=== PATIENT | male | born 1950 | race American Indian/Alaskan Native ===

== ENCOUNTER 2020-01-14 17:04 | Observation (INO) | payer MEDICARE ==
[2020-01-14] MEDS ORDERED: GABAPENTIN 300 MG CAP PO ONE (21:32)
[2020-01-14] MEDS ORDERED: MORPHINE 4 MG/1 ML INJ IV ONE (21:33)
[2020-01-14] MEDS ORDERED: ONDANSETRON 4 MG/2 ML INJ IV ONE (21:33)
--- NOTE | 2020-01-14 21:36 | Emergency Department Report ---
ED Extremity Problem HPI - General Chief complaint: Extremity Problem,Nontraumatic Stated complaint: LEG PAIN Time Seen by Provider: 01/14/20 21:19 Source: patient, old records reviewed Mode of arrival: Wheelchair Limitations: Language Barrier (Speaks Creole, shake maker used) - History of Present Illness Initial comments: 69-year male with a past medical history of dementia, diabetes, GERD, hypertension, and kidney injury secondary to ATN presents to the hospital with complaints of bilateral lower extremity pain that reoccurred and worsened this afternoon. Patient describes asked moderate to severe scratching pain which is constant. Patient looks uncomfortable and moaning secondary to pain. No trauma reported. Patient was recently admitted to the hospital here January 08- for fever with diagnosis of UTI with negative COVID-19 test, acute renal failure secondary to ATN that corrected prior to discharge, thrombocytopenia, and also had elevated D-dimer with bilateral Dopplers that were negative for DVT on January 10 and a low probability VQ scan on January 08. As notes note patient also documented to have severe debility with recommendation for outpatient physical therapy. Initially seems case management was planning to discharge her [place] but ultimately discharge patient home. Patient states he had total body pain during that admission and only developed leg pain today. No other complaints reported. Patient does complain of several days of mild dysuria but denies urinary retention, straining with urination, or difficulty emptying bladder. 1 month ago he had a Dupree catheter placed and has a history of BPH. Patient is AXO x3 he only speaks Creole and therefore a shake maker used - Related Data Home Medications Medication Instructions Recorded Confirmed Last Taken Omeprazole [PriLOSEC] 20 mg PO QDAY 05/25/13 10/24/19 04/26/13 Simvastatin (Nf) [Zocor TAB] 40 mg PO QHS 05/25/13 10/24/19 12/07/14 Latanoprost 0.005% 1 drop OP QPM 11/26/14 10/24/19 Unknown Previous Rx's Medication Instructions Recorded Last Taken Type buPROPion [Wellbutrin] 100 mg PO BID #60 10/17/19 Unknown Rx QUEtiapine [SEROquel] 100 mg PO DAILY tablet 10/31/19 Unknown Rx QUEtiapine [SEROquel] 200 mg PO QHS tablet 10/31/19 Unknown Rx buPROPion [Wellbutrin] 100 mg PO BID tablet 10/31/19 Unknown Rx Insulin NPH/Regular [NovoLIN 70/30] 8 unit SUB-Q BIDDIAB 30 Days #600 11/10/19 Unknown Rx units QUEtiapine [SEROquel] 200 mg PO QHS #15 tablet 11/10/19 Unknown Rx Pantoprazole [Protonix TAB] 40 mg PO QDAY #30 tablet 01/12/20 Unknown Rx Tamsulosin [Flomax] 0.4 mg PO QDAY #30 capsule 01/12/20 Unknown Rx Timolol 0.5% [Timoptic] 1 drops OP BID #1 bottle 01/12/20 Unknown Rx amLODIPine 10 mg PO QDAY #30 tablet 01/12/20 Unknown Rx Allergies Allergy/AdvReac Type Severity Reaction Status Date / Time No Known Allergies Allergy Verified 10/20/19 00:49 ED Review of Systems ROS: Stated complaint: LEG PAIN Other details as noted in HPI Comment: All other systems reviewed and negative ED Past Medical Hx - Past Medical History Previous Medical History?: Yes Hx Hypertension: Yes (5 YEARS) Hx Diabetes: Yes (NIDDM) Hx Pulmonary Embolism: No Hx GERD: Yes Hx Sickle Cell Disease: No Hx Arthritis: Yes (LEGS) Hx Psychiatric Treatment: Yes Hx Asthma: No Hx COPD: No Hx Dementia: Yes (alzheimer's) - Surgical History Additional Surgical History: UNABLE TO OBTAIN - Social History Smoking Status: Never Smoker - Medications Home Medications: Home Medications Medication Instructions Recorded Confirmed Last Taken Type Omeprazole [PriLOSEC] 20 mg PO QDAY 05/25/13 10/24/19 04/26/13 History Simvastatin (Nf) [Zocor TAB] 40 mg PO QHS 05/25/13 10/24/19 12/07/14 History Latanoprost 0.005% 1 drop OP QPM 11/26/14 10/24/19 Unknown History buPROPion [Wellbutrin] 100 mg PO BID #60 10/17/19 10/24/19 Unknown Rx QUEtiapine [SEROquel] 100 mg PO DAILY tablet 10/31/19 Unknown Rx QUEtiapine [SEROquel] 200 mg PO QHS tablet 10/31/19 Unknown Rx buPROPion [Wellbutrin] 100 mg PO BID tablet 10/31/19 Unknown Rx Insulin NPH/Regular [NovoLIN 70/30] 8 unit SUB-Q BIDDIAB 30 Days #600 11/10/19 Unknown Rx units QUEtiapine [SEROquel] 200 mg PO QHS #15 tablet 11/10/19 Unknown Rx Pantoprazole [Protonix TAB] 40 mg PO QDAY #30 tablet 01/12/20 Unknown Rx Tamsulosin [Flomax] 0.4 mg PO QDAY #30 capsule 01/12/20 Unknown Rx Timolol 0.5% [Timoptic] 1 drops OP BID #1 bottle 01/12/20 Unknown Rx amLODIPine 10 mg PO QDAY #30 tablet 01/12/20 Unknown Rx ED Physical Exam - General Limitations: No Limitations - Other Other exam information: General: Moderate distress secondary to pain Head: Atraumatic Eyes: normal appearance ENT: Moist mucous membranes Neck: Normal appearance, no midline tenderness Chest: Clear to auscultation bilaterally CV: Mild tachycardia regular Abdomen: Soft, normal bowel sounds, nontender, nondistended, no rebound or guarding Back: Normal inspection Extremity: Normal inspection without edema, warmth or erythema, no leg asymmetry, full range of motion, bilateral 2+ DP pulse. Pain not increased with movement of lower extremity joints hip, knee, and ankle. Pain is also not reproducible with palpation of muscles however pain is constant. 2+ bilateral femoral pulses without inguinal adenopathy Neuro: Alert O x 3, no facial asymmetry, speech clear, no gross motor sensory deficit Psych: Appropriate behavior Skin: No rash ED Course Vital Signs 01/14/20 01/14/20 17:37 22:09 Temperature 98.3 F Pulse Rate 118 H 110 H Respiratory 22 16 Rate Blood Pressure 114/70 Blood Pressure 115/55 [Right] O2 Sat by Pulse 98 97 Oximetry - Consultations Consultation #1: 01/14/20 23:16 Case discussed with body fitter on-call Dr. Simmons who recommends admission. Also recommends bladder scan to rule out obstruction even though patient cu rrently denies urinary retention symptoms. Patient was able to produce a urine in the ED and bladder scan will be performed after urination. ED Medical Decision Making - Lab Data Result diagrams: 01/14/20 21:36 01/14/20 21:36 Lab Results 01/14/20 01/14/20 01/14/20 Range/Units 21:36 21:36 23:18 WBC 7.7 (4.5-11.0) K/mm3 RBC 4.25 (3.65-5.03) M/mm3 Hgb 12.4 (11.8-15.2) gm/dl Hct 38.3 (35.5-45.6) % MCV 90 (84-94) fl MCH 29 (28-32) pg MCHC 32 (32-34) % RDW 14.2 (13.2-15.2) % Plt Count 162 (140-440) K/mm3 Lymph % (Auto) 4.2 L (13.4-35.0) % [place] % (Auto) 4.9 (0.0-7.3) % Eos % (Auto) 0.6 (0.0-4.3) % Baso % (Auto) 0.4 (0.0-1.8) % Lymph # (Auto) 0.3 L (1.2-5.4) K/mm3 [place] # (Auto) 0.4 (0.0-0.8) K/mm3 Eos # (Auto) 0.0 (0.0-0.4) K/mm3 Baso # (Auto) 0.0 (0.0-0.1) K/mm3 Seg Neutrophils % 89.9 H (40.0-70.0) % Seg Neutrophils # 6.9 (1.8-7.7) K/mm3 Sodium 138 (137-145) mmol/L Potassium 4.4 (3.6-5.0) mmol/L Chloride 101.3 (98-107) mmol/L Carbon Dioxide 19 L (22-30) mmol/L Anion Gap 22 mmol/L BUN 35 H (9-20) mg/dL Creatinine 2.7 H D (0.8-1.3) mg/dL Estimated GFR 28 ml/min BUN/Creatinine Ratio 13 % Glucose 186 H (75-100) mg/dL Calcium 9.2 (8.4-10.2) mg/dL Magnesium 2.30 (1.7-2.3) mg/dL Total Bilirubin 0.20 (0.1-1.2) mg/dL AST 36 (5-40) units/L ALT 41 (7-56) units/L Alkaline Phosphatase 84 (35-129) units/L Total Creatine Kinase 84 (55-170) units/L Total Protein 7.7 (6.3-8.2) g/dL Albumin 3.6 L (3.9-5) g/dL Albumin/Globulin Ratio 0.9 % Urine Color Yellow (Yellow) Urine Turbidity Slightly-cloudy (Clear) Urine pH 5.0 (5.0-7.0) Ur Specific [place] 1.013 (1.003-1.030) Urine Protein >500 (Negative) mg/dL Urine Glucose (UA) 50 (Negative) mg/dL Urine Ketones Neg (Negative) mg/dL Urine Blood Sm (Negative) Urine Nitrite Neg (Negative) Urine Bilirubin Neg (Negative) Urine Urobilinogen < 2.0 (<2.0) mg/dL Ur Leukocyte Esterase Sm (Negative) Urine WBC (Auto) 36.0 H (0.0-6.0) /HPF Urine RBC (Auto) 3.0 (0.0-6.0) /HPF U Epithel Cells (Auto) 1.0 (0-13.0) /HPF Urine Bacteria (Auto) 1+ (Negative) /HPF Urine Mucus Few /HPF - Medical Decision Making Patient presents to the hospital with bilateral lower extremity pain. He describes it as a scratching feeling. Patient is a diabetic and at risk for neuropathy. He does not have any signs of rhabdo with normal CK, clinical signs of DVT with recent negative bilateral Dopplers on record, and has palpable distal pulses without clinical signs of ischemia. There were no acute electrolyte abnormalities. Patient provided gabapentin (to cover for neuropathy) as well as IV morphine with improvement in pain. Once again labs reveal that patient has worsening renal function similar to admission creatinine. Upon admission on January 08 his creatinine was 2.9 Differential includes ATN, nephrotoxins, dehydration, and obstruction as cause of acute renal insufficiency. Patient was able to produce a urine in the ED and I requested the nurse perform bladder scan. IV fluids initiated. Patient was not discharged on any antibiotics as per ambulatory order meds in chart. Urine culture from January 08 suggestive of contamination. Is unclear as to what is the cause of patient's significant bilateral lower extremity pain but given history of diabetes he is at risk for neuropathy. He was UA results positive for persistent UTI. Urine recultured since initial culture during admission showed multiple organisms suggestive of contamination. IV Rocephin ordered. Hospitalist informed for admission Critical Care Time: No Critical care attestation.: If time is entered above; I have spent that time in minutes in the direct care of this critically ill patient, excluding procedure time. ED Disposition Clinical Impression: Acute renal insufficiency, Bilateral leg pain, Diabetes, UTI (urinary tract infection) Disposition: OP ADMIT IP TO THIS HOSP Is pt being admited?: Yes Condition: Stable Time of Disposition: 23:58 (Dr Bryan/hosp)
[2020-01-14 21:54] LABS: Basophils % (Auto) 0.4 % (0.0-1.8); Eosinophils % (Auto) 0.6 % (0.0-4.3); Hematocrit 38.3 % (35.5-45.6); Hemoglobin 12.4 gm/dl (11.8-15.2); Lymphocytes # (Auto) 0.3 K/mm3 (1.2-5.4); Lymphocytes % (Auto) 4.2 % (13.4-35.0); Mean Corpuscular HGB Conc 32 % (32-34); Mean Corpuscular Volume 90 fl (84-94); Monocytes # (Auto) 0.4 K/mm3 (0.0-0.8); Monocytes % (Auto) 4.9 % (0.0-7.3); Platelet Count 162 K/mm3 (140-440); Red Blood Count 4.25 M/mm3 (3.65-5.03); Red Cell Distribution Width 14.2 % (13.2-15.2)
[2020-01-14 22:13] LABS: Albumin 3.6 g/dL (3.9-5); Calcium 9.2 mg/dL (8.4-10.2)
[2020-01-14] MEDS ORDERED: SODIUM CHLORIDE 0.9% 1000 ML 1,000 ML IV ONE (23:08)
[2020-01-14 23:31] LABS: Bacteria,Urine 1+ /HPF (Negative); Bilirubin,Urine NEG (Negative); Blood,Urine SM (Negative); Color,Urine Yellow (Yellow); Mucus,Urine FEW /HPF; Urobilinogen,Urine < 2.0 mg/dL (<2.0)
[2020-01-14 23:33] LABS: Protein,Urine >500 mg/dL (Negative)
[2020-01-14] MEDS ORDERED: cefTRIAXone/NS 1 GM/50 ML 1 GM/50 ML BAG IV ONE (23:57)
[2020-01-15] MEDS ORDERED: ONDANSETRON 4 MG/2 ML INJ IV PRN (00:26)
[2020-01-15] MEDS ORDERED: ACETAMINOPHEN 325 MG TAB PO PRN (00:26)
[2020-01-15] MEDS ORDERED: DEXTROSE 50% IN WATER (25GM) 50 ML SYRINGE IV PRN (00:26)
[2020-01-15] MEDS ORDERED: MAGNESIUM HYDROXIDE (MOM) ORAL LIQD UDC PO PRN (00:26)
[2020-01-15] MEDS ORDERED: SODIUM CHLORIDE 0.9% 1000 ML 1,000 ML IV SCH (00:30)
--- NOTE | 2020-01-15 00:40 | History and Physical Report ---
History of Present Illness Date of examination: 01/15/20 Date of admission: 01/15/20 23:58 Chief complaint: Lower Extremity Pain History of present illness: Patient is a 69-year-old male with known history of dementia, hypertension diabetes mellitus and GERD presenting to the emergency room today complaining of bilateral lower extremity pain. Patient denies any fall or trauma to the lower extremities. He denies any weakness in the lower extremities. He denies any bladder or bowel incontinence. He was just recently in the hospital from January 08 to the being admitted for a UTI, acute kidney injury secondary to ATN which resolved prior to discharge, thrombocytopenia, he also had elevated D-dimer and VQ scan was low probability for PE. Patient speaks Creole and an aluminum siding mechanic was required during this history and physical. Patient denies any fever or chills, no chest pain or shortness of breath, no headache or dizziness, no nausea or vomiting, no diarrhea. He however indicates that he has still been having dysuria but denies any hematuria. He has known history of BPH for which he had Dupree catheter placed about a month ago as he has been having difficulty voiding at times. Work-up today in the emergency room reveals a UTI and also a acute kidney injury. He has been started on empiric IV antibiotics and IV fluid. Past History Past Medical History: arthritis, diabetes, GERD, hypertension, other (Dementia) Past Surgical History: No surgical history Social history: no significant social history Family history: no significant family history Medications and Allergies Allergies Allergy/AdvReac Type Severity Reaction Status Date / Time No Known Allergies Allergy Verified 10/20/19 00:49 Home Medications Medication Instructions Recorded Confirmed Last Taken Type Omeprazole [PriLOSEC] 20 mg PO QDAY 05/25/13 01/15/20 04/26/13 History Simvastatin (Nf) [Zocor TAB] 40 mg PO QHS 05/25/13 01/15/20 12/07/14 History Latanoprost 0.005% 1 drop OP QPM 11/26/14 01/15/20 Unknown History buPROPion [Wellbutrin] 100 mg PO BID #60 10/17/19 01/15/20 Unknown Rx QUEtiapine [SEROquel] 100 mg PO DAILY tablet 10/31/19 01/15/20 Unknown Rx QUEtiapine [SEROquel] 200 mg PO QHS tablet 10/31/19 01/15/20 Unknown Rx buPROPion [Wellbutrin] 100 mg PO BID tablet 10/31/19 01/15/20 Unknown Rx Insulin NPH/Regular [NovoLIN 70/30] 8 unit SUB-Q BIDDIAB 30 Days #600 11/10/19 01/15/20 Unknown Rx units QUEtiapine [SEROquel] 200 mg PO QHS #15 tablet 11/10/19 01/15/20 Unknown Rx Pantoprazole [Protonix TAB] 40 mg PO QDAY #30 tablet 01/12/20 01/15/20 Unknown Rx Tamsulosin [Flomax] 0.4 mg PO QDAY #30 capsule 01/12/20 01/15/20 Unknown Rx Timolol 0.5% [Timoptic] 1 drops OP BID #1 bottle 01/12/20 01/15/20 Unknown Rx amLODIPine 10 mg PO QDAY #30 tablet 01/12/20 01/15/20 Unknown Rx Active Meds: Active Medications Acetaminophen (Tylenol) 650 mg PO Q4H PRN PRN Reason: Pain MILD(1-3)/Fever >100.5/URIAS Dextrose (D50w (25gm) Syringe) 50 ml IV Q30MIN PRN; Protocol PRN Reason: Hypoglycemia Dextrose (D50w (25gm) Syringe) 50 ml IV Q30MIN PRN; Protocol PRN Reason: Hypoglycemia Sodium Chloride (Nacl 0.9% 1000 Ml) 1,000 mls @ 250 mls/hr IV ONCE ONE Stop: 01/15/20 03:07 Last Admin: 01/14/20 23:37 Dose: 250 mls/hr Documented by: Sodium Chloride (Nacl 0.9% 1000 Ml) 1,000 mls @ 125 mls/hr IV DIRECT PHILIPPE Ceftriaxone Sodium (Rocephin/Ns 1 Gm/50 Ml) 1 gm in 50 mls @ 100 mls/hr IV Q24HR PHILIPPE; Protocol Insulin Human Lispro (Humalog) 0 unit SUB-Q ACHS PHILIPPE; Protocol Insulin Human Regular (Humulin R) 0 unit SUB-Q ACHS PHILIPPE; Protocol Magnesium Hydroxide (Milk Of Magnesia) 30 ml PO Q4H PRN PRN Reason: Constipation Morphine Sulfate (Morphine) 2 mg IV Q4H PRN PRN Reason: Pain, Moderate (4-6) Ondansetron HCl (Zofran) 4 mg IV Q8H PRN PRN Reason: Nausea And Vomiting Sodium Chloride (Sodium Chloride Flush Syringe 10 Ml) 10 ml IV BID PHILIPPE Sodium Chloride (Sodium Chloride Flush Syringe 10 Ml) 10 ml IV PRN PRN PRN Reason: LINE FLUSH Review of Systems Constitutional: no fever, no chills Ears, nose, mouth and throat: no nasal congestion, no sore throat Cardiovascular: no chest pain, no palpitations Respiratory: no cough, no shortness of breath Gastrointestinal: no abdominal pain, no nausea, no vomiting Genitourinary Male: no dysuria, no hematuria, no flank pain Musculoskeletal: low back pain, no neck pain Integumentary: no rash, no pruritis Neurological: no headaches, no confusion Psychiatric: no anxiety, no depression Exam - Constitutional Vitals: Temp Pulse Resp BP Pulse Ox 98.3 F 110 H 16 115/55 97 01/14/20 17:37 01/14/20 22:09 01/14/20 22:09 01/14/20 22:09 01/14/20 22:09 General appearance: Present: no acute distress, well-nourished - EENT Eyes: Present: PERRL, EOM intact. Absent: scleral icterus ENT: hearing intact, clear oral mucosa, dentition normal - Neck Neck: Present: supple, normal ROM - Respiratory Respiratory effort: normal Respiratory: bilateral: CTA - Cardiovascular Rhythm: regular Heart Sounds: Present: S1 & S2. Absent: gallop, systolic murmur, diastolic murmur, rub - Extremities Extremities: no ischemia, pulses intact, pulses symmetrical, No edema, Full ROM Peripheral Pulses: within normal limits - Abdominal General gastrointestinal: Present: soft, non-tender, non-distended, normal bowel sounds. Absent: mass - Integumentary Integumentary: Present: clear, warm, dry. Absent: rash - Musculoskeletal Musculoskeletal: strength equal bilaterally - Psychiatric Psychiatric: appropriate mood/affect, intact judgment & insight, memory intact, cooperative - Neurologic Neurologic: CNII-XII intact, no focal deficits, moves all extremities Results - Labs CBC & Chem 7: 01/14/20 21:36 01/14/20 21:36 Labs: Abnormal lab results 01/14/20 01/14/20 01/14/20 Range/Units 21:36 21:36 23:18 Lymph % (Auto) 4.2 L (13.4-35.0) % Lymph # (Auto) 0.3 L (1.2-5.4) K/mm3 Seg Neutrophils % 89.9 H (40.0-70.0) % Carbon Dioxide 19 L (22-30) mmol/L BUN 35 H (9-20) mg/dL Creatinine 2.7 H D (0.8-1.3) mg/dL Glucose 186 H (75-100) mg/dL Albumin 3.6 L (3.9-5) g/dL Urine WBC (Auto) 36.0 H (0.0-6.0) /HPF Assessment and Plan - Patient Problems (1) Acute renal insufficiency Current Visit: Yes Status: Acute Plan to address problem: Patient placed on IV fluid. Will monitor BUN and creatinine. Consult placed to nephrology for evaluation and recommendation. (2) Bilateral leg pain Current Visit: Yes Status: Acute Plan to address problem: Etiology is unclear. Will have patient placed on IV analgesic medication as needed. We will consider MRI of the LS spine and also place a consult to neurology for e valuation and recommendation. (3) UTI (urinary tract infection) Current Visit: Yes Status: Acute Plan to address problem: Patient placed on empiric IV antibiotics. We will await urine culture results. (4) Diabetes Current Visit: Yes Status: Acute Plan to address problem: We will monitor Accu-Cheks. (5) DVT prophylaxis Current Visit: Yes Status: Acute Plan to address problem: Patient placed on subcutaneous heparin. (6) Full code status Current Visit: No Status: Acute
[2020-01-15] MEDS ORDERED: INSULIN REGULAR, HUMAN 100 UNIT/ML 3ML VIAL SUB-Q SCH (07:30)
[2020-01-15] MEDS: INSULIN LISPRO 100 UNIT/ML VIAL 3 mL SUB-Q SCH ×4 (09:00→23:20)
[2020-01-15] MEDS: cefTRIAXone/NS 1 GM/50 ML 1 GM/50 ML BAG IV SCH (09:44)
[2020-01-15] MEDS: MORPHINE 2 MG/1 ML INJ IV PRN (09:45)
[2020-01-15] MEDS: HEPARIN 5,000 UNIT/1 ML VIAL SUB-Q SCH ×2 (13:18→23:03)
--- NOTE | 2020-01-15 17:10 | Consultation ---
History of Present Illness - Reason for Consult Consult date: 01/15/20 acute renal failure - History of Present Illness This is a 69-year-old male with hypertension, diabetes mellitus, dementia and GERD who presented with bilateral lower extremity pain. He was recently in the hospital from January 08 to the for a UTI, acute kidney injury and thrombocytopenia. workup in the emergency department was concerning for acute kidney injury for which he was admitted. Nephrology was consulted for the same. He denies NSAID use. He denies difficulty urinating, urinary retention, nausea, vomiting and diarrhea. Past History Past Medical History: arthritis, diabetes, GERD, hypertension, other (Dementia) Past Surgical History: No surgical history Social history: no significant social history Family history: no significant family history Medications and Allergies Allergies Allergy/AdvReac Type Severity Reaction Status Date / Time No Known Allergies Allergy Verified 10/20/19 00:49 Home Medications Medication Instructions Recorded Confirmed Last Taken Type Omeprazole [PriLOSEC] 20 mg PO QDAY 05/25/13 01/15/20 04/26/13 History Simvastatin (Nf) [Zocor TAB] 40 mg PO QHS 05/25/13 01/15/20 12/07/14 History Latanoprost 0.005% 1 drop OP QPM 11/26/14 01/15/20 Unknown History buPROPion [Wellbutrin] 100 mg PO BID #60 10/17/19 01/15/20 Unknown Rx QUEtiapine [SEROquel] 100 mg PO DAILY tablet 10/31/19 01/15/20 Unknown Rx QUEtiapine [SEROquel] 200 mg PO QHS tablet 10/31/19 01/15/20 Unknown Rx buPROPion [Wellbutrin] 100 mg PO BID tablet 10/31/19 01/15/20 Unknown Rx Insulin NPH/Regular [NovoLIN 70/30] 8 unit SUB-Q BIDDIAB 30 Days #600 11/10/19 01/15/20 Unknown Rx units QUEtiapine [SEROquel] 200 mg PO QHS #15 tablet 11/10/19 01/15/20 Unknown Rx Pantoprazole [Protonix TAB] 40 mg PO QDAY #30 tablet 01/12/20 01/15/20 Unknown Rx Tamsulosin [Flomax] 0.4 mg PO QDAY #30 capsule 01/12/20 01/15/20 Unknown Rx Timolol 0.5% [Timoptic] 1 drops OP BID #1 bottle 01/12/20 01/15/20 Unknown Rx amLODIPine 10 mg PO QDAY #30 tablet 01/12/20 01/15/20 Unknown Rx Active Meds: Active Medications Acetaminophen (Tylenol) 650 mg PO Q4H PRN PRN Reason: Pain MILD(1-3)/Fever >100.5/URIAS Dextrose (D50w (25gm) Syringe) 0 ml IV Q30MIN PRN; Protocol PRN Reason: Hypoglycemia Heparin Sodium (Porcine) (Heparin) 5,000 unit SUB-Q Q8HR PHILIPPE Last Admin: 01/15/20 13:18 Dose: 5,000 unit Documented by: Sodium Chloride (Nacl 0.9% 1000 Ml) 1,000 mls @ 125 mls/hr IV DIRECT PHILIPPE Last Admin: 01/15/20 13:18 Dose: 125 mls/hr Documented by: Ceftriaxone Sodium (Rocephin/Ns 1 Gm/50 Ml) 1 gm in 50 mls @ 100 mls/hr IV Q24HR PHILIPPE; Protocol Last Admin: 01/15/20 09:44 Dose: 100 mls/hr Documented by: Insulin Human Lispro (Humalog) 0 unit SUB-Q ACHS PHILIPPE; Protocol Last Admin: 01/15/20 12:53 Dose: 2 unit Documented by: Magnesium Hydroxide (Milk Of Magnesia) 30 ml PO Q4H PRN PRN Reason: Constipation Morphine Sulfate (Morphine) 2 mg IV Q4H PRN PRN Reason: Pain, Moderate (4-6) Last Admin: 01/15/20 09:45 Dose: 2 mg Documented by: Ondansetron HCl (Zofran) 4 mg IV Q8H PRN PRN Reason: Nausea And Vomiting Sodium Chloride (Sodium Chloride Flush Syringe 10 Ml) 10 ml IV BID [facility] Last Admin: 01/15/20 09:45 Dose: 10 ml Documented by: Sodium Chloride (Sodium Chloride Flush Syringe 10 Ml) 10 ml IV PRN PRN PRN Reason: LINE FLUSH Review of Systems Constitutional: fever (denies), chills (denies) Eyes: bilateral: other (negative for blurred vision or loss of vision) Ears, nose, mouth and throat: other (negative for nasal congestion and dischar ge) Cardiovascular: other (negative for chest pain and palpitations) Respiratory: other (negative for cough and shortness of breath) Gastrointestinal: other (negative for nausea and vomiting) Genitourinary Male: other (negative for incontinence and hematuria) Rectal: other (negative for pain and bleeding) Musculoskeletal: other (notes lower extremity pain bilaterally) Integumentary: other (negative for rash and pruritus) Neurological: other (negative for weakness and paralysis) Psychiatric: other (negative for anxiety and depression) Endocrine: other (negative for polydipsia and polyuria) Allergic/Immunologic: other (negative for wheezing and urticaria) Exam - Vital Signs Vital signs: Vital Signs Temp Pulse Resp BP Pulse Ox 98.3 F 118 H 22 114/70 98 01/14/20 17:37 01/14/20 17:37 01/14/20 17:37 01/14/20 17:37 01/14/20 17:37 - Physical Exam Narrative exam: Vitals: Reviewed General: No acute distress HEENT: Oral mucosa moist, no pharyngeal erythema, no evidence of epistaxis Neck: Supple, no evidence of any JVD, trachea midline, no thyromegaly Chest: Clear to auscultation, no crackles, rales or wheezes Heart: Regular rate and rhythm, S1-S2 heard, no S3-S4, no pericardial rub Abdomen: Soft, nontender, no renal bruit, no suprapubic masses no CVA tenderness Extremity: No peripheral cyanosis, edema and dry skin Neurological: Alert, awake, no asterixis Dermatology; no skin rashes Back: Nontender thoracolumbar spine, no CVA tenderness Psych: No agitation and aggression Musculoskeletal: No joint effusion noted Results - Lab Results 01/14/20 21:36 01/14/20 21:36 Most recent lab results Calcium 9.2 mg/dL (8.4-10.2) 01/14/20 21:36 Magnesium 2.30 mg/dL (1.7-2.3) 01/14/20 21:36 Assessment and Plan Assessment * Acute kidney injury. baseline creatinine was 1.1 in September/2019. Ultrasound obtained last month was unremarkable except for a cyst seen in the left kidney. Right side was 11.8 cm and left 10.8 cm * Renal cyst in left kidney, 1.7 cm * Metabolic acidosis * Proteinuria * Pyuria Recommendations * Patient appears dry on exam, start Ringer's lactate * Check urine culture * Check ABG * Check PCR * strict I's and O's * Renally dose medications * Avoid nephrotoxins
--- NOTE | 2020-01-15 22:12 | Progress Note ---
Assessment and Plan - Patient Problems (1) Acute renal insufficiency Current Visit: Yes Status: Acute Plan to address problem: Patient placed on IV fluid. Repeat bun/cr (2) Bilateral leg pain Current Visit: Yes Status: Acute Plan to address problem: Etiology is unclear. Will have patient placed on IV analgesic medication as needed. MRI-LS spine pending (3) UTI (urinary tract infection) Current Visit: Yes Status: Acute Plan to address problem: Patient placed on empiric IV antibiotics. We will await urine culture results. (4) Diabetes Current Visit: Yes Status: Acute Plan to address problem: We will monitor Accu-Cheks. (5) DVT prophylaxis Current Visit: Yes Status: Acute Plan to address problem: Patient placed on subcutaneous heparin. (6) Full code status Current Visit: No Status: Acute Subjective Date of service: 01/15/20 Principal diagnosis: ERIC Interval history: Patient is a 69-year-old male with known history of dementia, hypertension diabetes mellitus and GERD presenting to the emergency room today complaining of bilateral lower extremity pain. Patient denies any fall or trauma to the lower extremities. He denies any weakness in the lower extremities. He denies any bladder or bowel incontinence. He was just recently in the hospital from January 08 to the being admitted for a UTI, acute kidney injury secondary to ATN which resolved prior to discharge, thrombocytopenia, he also had elevated D-dimer and VQ scan was low probability for PE. Patient speaks Creole and an nurses assistant was required during this history and physical. Patient denies any fever or chills, no chest pain or shortness of breath, no headache or dizziness, no nausea or vomiting, no diarrhea. He however indicates that he has still been having dysuria but denies any hematuria. He has known history of BPH for which he had Dupree catheter placed about a month ago as he has been having difficulty voiding at times. Work-up today in the emergency room reveals a UTI and also a acute kidney injury. He has been started on empiric IV antibiotics and IV fluid. Day #1-- 01/15/20--Sx better Objective - Constitutional Vitals: Vital Signs - 12hr 01/15/20 01/15/20 10:57 16:01 Temperature 98.7 F 98.7 F Pulse Rate 107 H 99 H Respiratory 20 20 Rate Blood Pressure 129/64 145/79 O2 Sat by Pulse 95 93 Oximetry General appearance: Present: no acute distress, well-nourished - EENT Eyes: PERRL, EOM intact ENT: hearing intact, clear oral mucosa Ears: bilateral: normal - Neck Neck: supple, normal ROM - Respiratory Respiratory effort: normal Respiratory: bilateral: CTA - Breasts Breasts: normal - Cardiovascular Heart rate: 78 Rhythm: regular Heart Sounds: Present: S1 & S2. Absent: gallop, rub Extremities: pulses intact, No edema, normal color, Full ROM - Gastrointestinal General gastrointestinal: Present: soft, non-tender, non-distended, normal bowel sounds - Genitourinary Male genitourinary: normal - Integumentary Integumentary: clear, warm, dry - Musculoskeletal Musculoskeletal: 1, strength equal bilaterally - Neurologic Neurologic: moves all extremities - Psychiatric Psychiatric: memory intact, appropriate mood/affect, intact judgment & insight - Allied health notes Allied health notes reviewed: nursing, case management - Labs CBC & Chem 7: 01/14/20 21:36 01/14/20 21:36 Labs: Abnormal lab results 01/14/20 01/14/20 01/15/20 Range/Units 21:36 23:18 09:27 Carbon Dioxide 19 L (22-30) mmol/L BUN 35 H (9-20) mg/dL Creatinine 2.7 H D (0.8-1.3) mg/dL Glucose 186 H (75-100) mg/dL POC Glucose 133 H (70-105) mg/dL Albumin 3.6 L (3.9-5) g/dL Urine WBC (Auto) 36.0 H (0.0-6.0) /HPF 01/15/20 Range/Units 12:48 Carbon Dioxide (22-30) mmol/L BUN (9-20) mg/dL Creatinine (0.8-1.3) mg/dL Glucose (75-100) mg/dL POC Glucose 151 H (70-105) mg/dL Albumin (3.9-5) g/dL Urine WBC (Auto) (0.0-6.0) /HPF
[2020-01-15] MEDS: LACTATED RINGERS 1,000 ML IV SCH (23:44)
[2020-01-16 04:45] LABS: Creatinine,Urine < 4.2 mg/dL (0.1-20.0)
[2020-01-16 05:26] LABS: Basophils % (Auto) 0.4 % (0.0-1.8); Eosinophils # (Auto) 0.3 K/mm3 (0.0-0.4); Eosinophils % (Auto) 6.8 % (0.0-4.3); Lymphocytes # (Auto) 1.1 K/mm3 (1.2-5.4); Mean Corpuscular HGB Conc 32 % (32-34); Mean Corpuscular Volume 90 fl (84-94); Monocytes # (Auto) 0.4 K/mm3 (0.0-0.8); Monocytes % (Auto) 10.5 % (0.0-7.3); Platelet Count 186 K/mm3 (140-440); Red Blood Count 3.79 M/mm3 (3.65-5.03); Red Cell Distribution Width 14.4 % (13.2-15.2)
[2020-01-16 05:38] LABS: INR 1.08 (0.87-1.13)
[2020-01-16] MEDS: HEPARIN 5,000 UNIT/1 ML VIAL SUB-Q SCH ×3 (05:45→21:45)
[2020-01-16 05:51] LABS: Calcium 9.2 mg/dL (8.4-10.2)
--- NOTE | 2020-01-16 06:57 | Progress Note ---
Assessment and Plan Assessment * Acute kidney injury. baseline creatinine was 1.1 in September/2019. Ultrasound obtained last month was unremarkable except for a cyst seen in the left kidney. Right side was 11.8 cm and left 10.8 cm * Renal cyst in left kidney, 1.7 cm * Metabolic acidosis * Proteinuria * Pyuria * Dehydration Recommendations * Continue Ringer's lactate * Encouraged oral hydration * F/u urine culture * strict I's and O's * Renally dose medications * Avoid nephrotoxins Subjective Date of service: 01/16/20 Principal diagnosis: ERIC Interval history: Patient was seen for his renal issues Nursing, interdisciplinary and consult notes were reviewed Vitals, input and output, medications and labs were reviewed Imaging was reviewed UOP 1.1 L Objective - Exam Narrative Exam: Vitals: Reviewed General: No acute distress HEENT: Oral mucosa moist, no pharyngeal erythema, no evidence of epistaxis Neck: Supple, no evidence of any JVD, trachea midline, no thyromegaly Chest: Clear to auscultation, no crackles, rales or wheezes Heart: Regular rate and rhythm, S1-S2 heard, no S3-S4, no pericardial rub Abdomen: Soft, nontender, no renal bruit, no suprapubic masses no CVA tenderness Extremity: No peripheral cyanosis, edema and dry skin Neurological: Alert, awake, no asterixis Dermatology; no skin rashes Back: Nontender thoracolumbar spine, no CVA tenderness Psych: No agitation and aggression Musculoskeletal: No joint effusion noted - Vital Signs Vital signs: Vital Signs - 12hr 01/15/20 01/15/20 01/15/20 22:00 23:03 23:06 Temperature 99.2 F Pulse Rate 98 H Respiratory 18 18 18 Rate Blood Pressure 142/82 O2 Sat by Pulse 96 Oximetry - Lab 01/16/20 04:04 01/16/20 04:04 Most recent lab results Calcium 9.2 mg/dL (8.4-10.2) 01/16/20 04:04 Magnesium 2.30 mg/dL (1.7-2.3) 01/14/20 21:36 Urine Creatinine < 4.2 mg/dL (0.1-20.0) 01/15/20 04:25 Urine Total Protein < 4 mg/dL (5-11.8) L 01/15/20 04:25 Medications & Allergies - Medications Allergies/Adverse Reactions: Allergies No Known Allergies Allergy (Verified 10/20/19 00:49) Home Medications: Home Medications Medication Instructions Recorded Confirmed Last Taken Type Omeprazole [PriLOSEC] 20 mg PO QDAY 05/25/13 01/15/20 04/26/13 History Simvastatin (Nf) [Zocor TAB] 40 mg PO QHS 05/25/13 01/15/20 12/07/14 History Latanoprost 0.005% 1 drop OP QPM 11/26/14 01/15/20 Unknown History buPROPion [Wellbutrin] 100 mg PO BID #60 10/17/19 01/15/20 Unknown Rx QUEtiapine [SEROquel] 100 mg PO DAILY tablet 10/31/19 01/15/20 Unknown Rx QUEtiapine [SEROquel] 200 mg PO QHS tablet 10/31/19 01/15/20 Unknown Rx buPROPion [Wellbutrin] 100 mg PO BID tablet 10/31/19 01/15/20 Unknown Rx Insulin NPH/Regular [NovoLIN 70/30] 8 unit SUB-Q BIDDIAB 30 Days #600 11/10/19 01/15/20 Unknown Rx units QUEtiapine [SEROquel] 200 mg PO QHS #15 tablet 11/10/19 01/15/20 Unknown Rx Pantoprazole [Protonix TAB] 40 mg PO QDAY #30 tablet 01/12/20 01/15/20 Unknown Rx Tamsulosin [Flomax] 0.4 mg PO QDAY #30 capsule 01/12/20 01/15/20 Unknown Rx Timolol 0.5% [Timoptic] 1 drops OP BID #1 bottle 01/12/20 01/15/20 Unknown Rx amLODIPine 10 mg PO QDAY #30 tablet 01/12/20 01/15/20 Unknown Rx Active Medications: Generic Name Dose Route Start Last Admin Trade Name Freq PRN Reason Stop Dose Admin Acetaminophen 650 mg 01/15/20 00:26 01/15/20 23:03 Tylenol PO 650 mg Q4H PRN Administration Pain MILD(1-3)/Fever >100.5/URIAS Dextrose 0 ml 01/15/20 00:26 D50w (25gm) Syringe IV Q30MIN PRN Hypoglycemia Protocol Heparin Sodium (Porcine) 5,000 unit 01/15/20 14:00 01/16/20 05:45 Heparin SUB-Q 5,000 unit Q8HR PHILIPPE Administration Ceftriaxone Sodium 1 gm in 50 mls @ 100 mls/hr 01/15/20 10:00 01/15/20 09:44 Rocephin/Ns 1 Gm/50 Ml IV 100 mls/hr Q24HR PHILIPPE Administration Protocol Lactated Ringer's 1,000 mls @ 125 mls/hr 01/15/20 18:00 01/15/20 23:44 Lactated Ringers IV 125 mls/hr DIRECT PHILIPPE Administration Insulin Human Lispro 0 unit 01/15/20 07:30 01/15/20 23:20 Humalog SUB-Q Not Given ACHS PHILIPPE Protocol Magnesium Hydroxide 30 ml 01/15/20 00:26 Milk Of Magnesia PO Q4H PRN Constipation Morphine Sulfate 2 mg 01/15/20 00:26 01/15/20 09:45 Morphine IV 2 mg Q4H PRN Administration Pain, Moderate (4-6) Ondansetron HCl 4 mg 01/15/20 00:26 Zofran IV Q8H PRN Nausea And Vomiting Sodium Chloride 10 ml 01/15/20 10:00 01/15/20 23:03 Sodium Chloride Flush Syringe 10 Ml IV 10 ml BID PHILIPPE Administration Sodium Chloride 10 ml 01/15/20 00:26 Sodium Chloride Flush Syringe 10 Ml IV PRN PRN LINE FLUSH
[2020-01-16] MEDS: LACTATED RINGERS 1,000 ML IV SCH ×2 (07:34→18:12)
--- NOTE | 2020-01-16 07:48 | Progress Note ---
Assessment and Plan - Patient Problems (1) Bilateral leg pain Current Visit: Yes Status: Acute Plan to address problem: Exact etiology of bilateral leg pain unknown. May have been cramping. Has resolved at this time. (2) Diabetes Current Visit: Yes Status: Acute Plan to address problem: Currently has fair control of diabetes. Continue sliding scale insulin will titrate accordingly. (3) Memory loss Current Visit: Yes Status: Acute Plan to address problem: Could be secondary to acute kidney injury. Now has resolved patient's memory is intact cognition appears to be fairly well intact despite language barrier. (4) ERIC (acute kidney injury) Current Visit: No Status: Acute Plan to address problem: Acute kidney injury continues to resolve most likely secondary to prerenal azotemia. BUN/creatinine is gone down from 30 and 3.7-26 and 1.9. (5) UTI (urinary tract infection) Current Visit: Yes Status: Acute Plan to address problem: Continue present treatment will convert to p.o. antibiotics in anticipation for discharge. Subjective Date of service: 01/16/20 Principal diagnosis: ERIC Interval history: Patient is a 69-year-old male with known history of dementia, hypertension diabetes mellitus and GERD presenting to the emergency room today complaining of bilateral lower extremity pain. Patient denies any fall or trauma to the lower extremities. He denies any weakness in the lower extremities. He denies any bladder or bowel incontinence. He was just recently in the hospital from January 08 to the being admitted for a UTI, acute kidney injury secondary to ATN which resolved prior to discharge, thrombocytopenia, he also had elevated D-dimer and VQ scan was low probability for PE. Patient at present denies chest pain denies leg pain at this particular time. Patient states he feels much better. Objective - Constitutional Vitals: Vital Signs - 12hr 01/15/20 01/15/20 01/15/20 22:00 23:03 23:06 Temperature 99.2 F Pulse Rate 98 H Respiratory 18 18 18 Rate Blood Pressure 142/82 O2 Sat by Pulse 96 Oximetry General appearance: Present: no acute distress, well-nourished - EENT Eyes: PERRL, EOM intact ENT: hearing intact, clear oral mucosa Ears: bilateral: normal - Neck Neck: supple, normal ROM - Respiratory Respiratory effort: normal Respiratory: bilateral: CTA - Breasts Breasts: normal - Cardiovascular Rhythm: regular Heart Sounds: Present: S1 & S2. Absent: gallop, rub Extremities: pulses intact, No edema, normal color, Full ROM - Gastrointestinal General gastrointestinal: Present: soft, non-tender, non-distended, normal bowel sounds - Genitourinary Male genitourinary: normal - Integumentary Integumentary: clear, warm, dry - Musculoskeletal Musculoskeletal: 1, strength equal bilaterally - Neurologic Neurologic: moves all extremities - Psychiatric Psychiatric: memory intact, appropriate mood/affect, intact judgment & insight - Labs CBC & Chem 7: 01/16/20 04:04 01/16/20 04:04 Labs: Abnormal lab results 01/15/20 01/15/20 01/15/20 Range/Units 04:25 09:27 12:48 WBC (4.5-11.0) K/mm3 Hgb (11.8-15.2) gm/dl Hct (35.5-45.6) % [place] % (Auto) (0.0-7.3) % Eos % (Auto) (0.0-4.3) % Lymph # (Auto) (1.2-5.4) K/mm3 Chloride (98-107) mmol/L Carbon Dioxide (22-30) mmol/L BUN (9-20) mg/dL Creatinine (0.8-1.3) mg/dL POC Glucose 133 H 151 H (70-105) mg/dL Urine Total Protein < 4 L (5-11.8) mg/dL 01/15/20 01/16/20 01/16/20 Range/Units 23:21 04:04 04:04 WBC 4.2 L (4.5-11.0) K/mm3 Hgb 11.0 L (11.8-15.2) gm/dl Hct 34.0 L (35.5-45.6) % [place] % (Auto) 10.5 H (0.0-7.3) % Eos % (Auto) 6.8 H (0.0-4.3) % Lymph # (Auto) 1.1 L (1.2-5.4) K/mm3 Chloride 110.6 H (98-107) mmol/L Carbon Dioxide 20 L (22-30) mmol/L BUN 26 H (9-20) mg/dL Creatinine 1.9 H (0.8-1.3) mg/dL POC Glucose 143 H (70-105) mg/dL Urine Total Protein (5-11.8) mg/dL 01/16/20 Range/Units 07:58 WBC (4.5-11.0) K/mm3 Hgb (11.8-15.2) gm/dl Hct (35.5-45.6) % [place] % (Auto) (0.0-7.3) % Eos % (Auto) (0.0-4.3) % Lymph # (Auto) (1.2-5.4) K/mm3 Chloride (98-107) mmol/L Carbon Dioxide (22-30) mmol/L BUN (9-20) mg/dL Creatinine (0.8-1.3) mg/dL POC Glucose 106 H (70-105) mg/dL Urine Total Protein (5-11.8) mg/dL
[2020-01-16] MEDS: INSULIN LISPRO 100 UNIT/ML VIAL 3 mL SUB-Q SCH ×4 (10:13→22:28)
[2020-01-16] MEDS: cefTRIAXone/NS 1 GM/50 ML 1 GM/50 ML BAG IV SCH (11:33)
--- NOTE | 2020-01-16 17:24 | Consultation ---
History of Present Illness Consult date: 01/16/20 Reason for Consult: dementia Chief complaint: change in mental status History of present illness: this is a 69-year-old gentleman who presented to the emergency room with the symptoms of pain in his both legs and confusion. He was reported to have had urinary tract infection in the past and presently the primary care team prescribed him antibiotic. He apparently denied any neurological symptoms whatsoever other than mild to moderate degree of memory loss. Past History Past Medical History: arthritis, diabetes, GERD, hypertension, other (Dementia) Past Surgical History: No surgical history Social history: no significant social history Family history: no significant family history Medications and Allergies Allergies Allergy/AdvReac Type Severity Reaction Status Date / Time No Known Allergies Allergy Verified 10/20/19 00:49 Home Medications Medication Instructions Recorded Confirmed Last Taken Type Omeprazole [PriLOSEC] 20 mg PO QDAY 05/25/13 01/15/20 04/26/13 History Simvastatin (Nf) [Zocor TAB] 40 mg PO QHS 05/25/13 01/15/20 12/07/14 History Latanoprost 0.005% 1 drop OP QPM 11/26/14 01/15/20 Unknown History buPROPion [Wellbutrin] 100 mg PO BID #60 10/17/19 01/15/20 Unknown Rx QUEtiapine [SEROquel] 100 mg PO DAILY tablet 10/31/19 01/15/20 Unknown Rx QUEtiapine [SEROquel] 200 mg PO QHS tablet 10/31/19 01/15/20 Unknown Rx buPROPion [Wellbutrin] 100 mg PO BID tablet 10/31/19 01/15/20 Unknown Rx Insulin NPH/Regular [NovoLIN 70/30] 8 unit SUB-Q BIDDIAB 30 Days #600 11/10/19 01/15/20 Unknown Rx units QUEtiapine [SEROquel] 200 mg PO QHS #15 tablet 11/10/19 01/15/20 Unknown Rx Pantoprazole [Protonix TAB] 40 mg PO QDAY #30 tablet 01/12/20 01/15/20 Unknown Rx Tamsulosin [Flomax] 0.4 mg PO QDAY #30 capsule 01/12/20 01/15/20 Unknown Rx Timolol 0.5% [Timoptic] 1 drops OP BID #1 bottle 01/12/20 01/15/20 Unknown Rx amLODIPine 10 mg PO QDAY #30 tablet 01/12/20 01/15/20 Unknown Rx Active Meds: Active Medications Acetaminophen (Tylenol) 650 mg PO Q4H PRN PRN Reason: Pain MILD(1-3)/Fever >100.5/URIAS Last Admin: 01/15/20 23:03 Dose: 650 mg Documented by: Dextrose (D50w (25gm) Syringe) 0 ml IV Q30MIN PRN; Protocol PRN Reason: Hypoglycemia Heparin Sodium (Porcine) (Heparin) 5,000 unit SUB-Q Q8HR PHILIPPE Last Admin: 01/16/20 13:16 Dose: 5,000 unit Documented by: Ceftriaxone Sodium (Rocephin/Ns 1 Gm/50 Ml) 1 gm in 50 mls @ 100 mls/hr IV Q24HR PHILIPPE; Protocol Last Admin: 01/16/20 11:33 Dose: 100 mls/hr Documented by: Lactated Ringer's (Lactated Ringers) 1,000 mls @ 125 mls/hr IV DIRECT PHILIPPE Last Admin: 01/16/20 07:34 Dose: 125 mls/hr Documented by: Insulin Human Lispro (Humalog) 0 unit SUB-Q ACHS PHILIPPE; Protocol Last Admin: 01/16/20 13:15 Dose: 2 unit Documented by: Magnesium Hydroxide (Milk Of Magnesia) 30 ml PO Q4H PRN PRN Reason: Constipation Morphine Sulfate (Morphine) 2 mg IV Q4H PRN PRN Reason: Pain, Moderate (4-6) Last Admin: 01/15/20 09:45 Dose: 2 mg Documented by: Ondansetron HCl (Zofran) 4 mg IV Q8H PRN PRN Reason: Nausea And Vomiting Sodium Chloride (Sodium Chloride Flush Syringe 10 Ml) 10 ml IV BID PHILIPPE Last Admin: 01/16/20 11:34 Dose: 10 ml Documented by: Sodium Chloride (Sodium Chloride Flush Syringe 10 Ml) 10 ml IV PRN PRN PRN Reason: LINE FLUSH Review of Systems Musculoskeletal: other (pain in both legs) Neurological: memory loss Physical Examination - Vital Signs Vital Signs: Vital Signs Temp Pulse Resp BP Pulse Ox 98.3 F 118 H 22 114/70 98 01/14/20 17:37 01/14/20 17:37 01/14/20 17:37 01/14/20 17:37 01/14/20 17:37 - Neurologic Cranial nerve examination: PERRL, EOMI, V1/V2/V3 grossly intact, face symmetric, tongue midline, intact, intact shoulder shrug Speech examination: intact Sensorimotor examination: intact Detailed motor examination: grossly full strength in Detailed sensory examination: intact Cerebellar examination: other (normal) Results - Laboratory Findings CBC and BMP: 01/16/20 04:04 01/16/20 04:04 Abnormal Lab Findings: Abnormal Labs 01/14/20 01/14/20 01/14/20 21:36 21:36 23:18 WBC Hgb Hct Lymph % (Auto) 4.2 L [place] % (Auto) Eos % (Auto) Lymph # (Auto) 0.3 L Seg Neutrophils % 89.9 H Chloride Carbon Dioxide 19 L BUN 35 H Creatinine 2.7 H D Glucose 186 H POC Glucose Albumin 3.6 L Urine WBC (Auto) 36.0 H Urine Total Protein 01/15/20 01/15/20 01/15/20 04:25 09:27 12:48 WBC Hgb Hct Lymph % (Auto) [place] % (Auto) Eos % (Auto) Lymph # (Auto) Seg Neutrophils % Chloride Carbon Dioxide BUN Creatinine Glucose POC Glucose 133 H 151 H Albumin Urine WBC (Auto) Urine Total Protein < 4 L 01/15/20 01/16/20 01/16/20 23:21 04:04 04:04 WBC 4.2 L Hgb 11.0 L Hct 34.0 L Lymph % (Auto) [place] % (Auto) 10.5 H Eos % (Auto) 6.8 H Lymph # (Auto) 1.1 L Seg Neutrophils % Chloride 110.6 H Carbon Dioxide 20 L BUN 26 H Creatinine 1.9 H Glucose POC Glucose 143 H Albumin Urine WBC (Auto) Urine Total Protein 01/16/20 01/16/20 07:58 12:02 WBC Hgb Hct Lymph % (Auto) [place] % (Auto) Eos % (Auto) Lymph # (Auto) Seg Neutrophils % Chloride Carbon Dioxide BUN Creatinine Glucose POC Glucose 106 H 152 H Albumin Urine WBC (Auto) Urine Total Protein Assessment and Plan - Patient Problems (1) Memory loss Current Visit: Yes Status: Acute Plan to address problem: 1) it was not clear that he had workup done for his memory loss as an outpatient. If not performed, he needs CT scan of the brain, blood test for TSH, vitamin B12 level, and FTAantibody test. 2) treatment per his primary team for pain in his both legs. I discussed at length with the patient regarding his condition and treatment options. He agreed with the plan. I answered all the questions posed by the patient to his Best satisfaction.
[2020-01-17] MEDS: LACTATED RINGERS 1,000 ML IV SCH ×3 (02:03→19:11)
[2020-01-17] MEDS: HEPARIN 5,000 UNIT/1 ML VIAL SUB-Q SCH ×3 (05:58→21:13)
[2020-01-17] MEDS: MORPHINE 2 MG/1 ML INJ IV PRN (07:47)
[2020-01-17] MEDS: INSULIN LISPRO 100 UNIT/ML VIAL 3 mL SUB-Q SCH ×4 (08:45→22:35)
[2020-01-17] MEDS: cefTRIAXone/NS 1 GM/50 ML 1 GM/50 ML BAG IV SCH (09:50)
[2020-01-17 14:20] LABS: BUN/Creatinine Ratio 11; Blood Urea Nitrogen 14 mg/dL (9-20); Calcium 9.2 mg/dL (8.4-10.2); Hemolysis Index 2
--- NOTE | 2020-01-17 15:28 | Progress Note ---
Assessment and Plan - Patient Problems (1) Bilateral leg pain Current Visit: Yes Status: Acute Plan to address problem: Exact etiology of bilateral leg pain unknown. Patient's pain is back could be nocturnal leg cramps. The description and history of his pain is so poor very difficult to really understand the etiology of the pain. At this point will obtain bilateral x-rays. We will also obtain venous Dopplers however it does not appear that he has ischemic pain at all. Because it happens at rest and description of pain is not consistent with it. Could be nocturnal leg cramps. It is not neuropathy. (2) Diabetes Current Visit: Yes Status: Acute Plan to address problem: Currently has fair control of diabetes. Continue sliding scale insulin will titrate accordingly. (3) Memory loss Current Visit: Yes Status: Acute Plan to address problem: Patient states him and his doctor is known about some mild memory loss for quite some time states he had not had any work-up. Patient states he sees Dr. Melly Ramirez has a very good indication of what he has done in the past with him. There has been no work-up for lower extremity pain. Or memory loss. (4) ERIC (acute kidney injury) Current Visit: No Status: Acute Plan to address problem: Acute kidney injury continues to resolve most likely secondary to prerenal azotemia. BUN/creatinine is gone down from 30 and 3.7-26 and 1.9. (5) UTI (urinary tract infection) Current Visit: Yes Status: Acute Plan to address problem: Continue present treatment will convert to p.o. antibiotics in anticipation for discharge. Subjective Date of service: 01/17/20 Principal diagnosis: ERIC Interval history: Patient is a 69-year-old male with known history of dementia, hypertension diabetes mellitus and GERD presenting to the emergency room today complaining of bilateral lower extremity pain. Patient denies any fall or trauma to the lower extremities. He denies any weakness in the lower extremities. He denies any bladder or bowel incontinence. He was just recently in the hospital from January 08 to the being admitted for a UTI, acute kidney injury secondary to ATN which resolved prior to discharge, thrombocytopenia, he also had elevated D-dimer and VQ scan was low probability for PE. Patient at present denies chest pain denies leg pain at this particular time. Patient states he feels much better. 01/16/2020 patient denied leg pain was much more alert. Currently being treated for sepsis with UTI. 01/17/2020 patient complains of bilateral leg pain he had over the night. Very difficult to tell where patient's pain is coming from. He cannot quantify or express the pain at all. Patient describes the pain as intermittent will come for 4 hours and then leave. It is not associated with exercise with movement. Can happen at rest. Patient states he has a pleuritic component to the leg pain. It starts from the ankle up to the mid thigh. He also describes what could possibly nocturnal leg cramps. Will obtain bilateral hip x-ray could not reach . Did call on the chart with says the son but that is not the son that is the past of his confucianist that he had a long time ago and does not know anything about his current health condition. Objective - Constitutional Vitals: Vital Signs - 12hr 01/17/20 01/17/20 06:28 12:12 Temperature 99.0 F 98.0 F Pulse Rate 95 H 84 Respiratory 20 20 Rate Blood Pressure 152/80 157/96 O2 Sat by Pulse 97 97 Oximetry General appearance: Present: no acute distress, well-nourished, other - EENT Eyes: PERRL, EOM intact ENT: hearing intact, clear oral mucosa Ears: bilateral: normal - Neck Neck: supple, normal ROM - Respiratory Respiratory effort: normal Respiratory: bilateral: CTA - Breasts Breasts: normal - Cardiovascular Rhythm: regular Heart Sounds: Present: S1 & S2. Absent: gallop, rub Extremities: pulses intact, No edema, normal color, Full ROM - Gastrointestinal General gastrointestinal: Present: soft, non-tender, non-distended, normal bowel sounds - Genitourinary Male genitourinary: normal - Integumentary Integumentary: clear, warm, dry - Musculoskeletal Musculoskeletal: 1, strength equal bilaterally - Neurologic Neurologic: moves all extremities - Psychiatric Psychiatric: memory intact, appropriate mood/affect, intact judgment & insight - Labs CBC & Chem 7: 01/16/20 04:04 01/17/20 13:24 Labs: Abnormal lab results 01/16/20 01/17/20 01/17/20 Range/Units 22:17 08:19 12:29 Chloride (98-107) mmol/L Glucose (75-100) mg/dL POC Glucose 139 H 107 H 127 H (70-105) mg/dL 10/24/20 Range/Units 13:24 Chloride 110.8 H (98-107) mmol/L Glucose 121 H (75-100) mg/dL POC Glucose (70-105) mg/dL
--- NOTE | 2020-01-17 17:46 | Cat Scan Report ---
NONENHANCED CT SCAN OF THE HEAD: INDICATION / CLINICAL INFORMATION: 69 years Male; memory loss. TECHNIQUE: Routine CT head without contrast. All CT scans at this location are performed using CT dos e reduction for ALARA by means of automated exposure control. COMPARISON: CT scan of the head from 10/06/2019 FINDINGS: BRAIN / INTRACRANIAL CONTENTS: CT findings remain unchanged. No acute hemorrhage, mass effect, midline shift, hydrocephalus, or acute, large territorial infarct. No chronic infarct or focal atrophy. Normal brain volume and ventricular/sulcal size for age. No sig nificant white matter abnormality. CT FINDINGS RELATED TO COGNITION: No chronic subdural hematoma; no CT findings to suggest normal pressure hydrocephalus No space taking lesion in the frontal and temporal lobes Moderate volume loss in the hippocampi Cuneus and precuneus are normal CRANIOCERVICAL JUNCTION: No significant abnormality. ORBITS: No significant abnormality of visualized orbits. SINUSES / MASTOIDS: No significant abnormality of the visualized paranasal sinuses or mastoid air hood ls. ADDITIONAL FINDINGS: None. IMPRESSION: No acute parenchymal lesion; CT findings remain unchanged Signer Name: Anabel Santos MD Signed: 01/17/2020 5:42 PM Workstation Name: [id number]
--- NOTE | 2020-01-17 17:59 | Progress Note ---
Assessment and Plan Assessment * Acute kidney injury. baseline creatinine was 1.1 in September/2019. Ultrasound obtained last month was unremarkable except for a cyst seen in the left kidney. Right side was 11.8 cm and left 10.8 cm * Renal cyst in left kidney, 1.7 cm * Metabolic acidosis * Proteinuria * Pyuria * Dehydration Recommendations * Can discontinue Ringer's lactate * Encouraged oral hydration * strict I's and O's * Renally dose medications * Avoid nephrotoxins * Will sign off Subjective Date of service: 01/17/20 Principal diagnosis: ERIC Interval history: Patient was seen for his renal issues Nursing, interdisciplinary and consult notes were reviewed Vitals, input and output, medications and labs were reviewed Continues to experience his leg pain Objective - Exam Narrative Exam: Vitals: Reviewed General: No acute distress HEENT: Oral mucosa moist, no pharyngeal erythema, no evidence of epistaxis Neck: Supple, no evidence of any JVD, trachea midline, no thyromegaly Chest: Clear to auscultation, no crackles, rales or wheezes Heart: Regular rate and rhythm, S1-S2 heard, no S3-S4, no pericardial rub Abdomen: Soft, nontender, no renal bruit, no suprapubic masses no CVA tenderness Extremity: No peripheral cyanosis, edema and dry skin Neurological: Alert, awake, no asterixis Dermatology; no skin rashes Back: Nontender thoracolumbar spine, no CVA tenderness Psych: No agitation and aggression Musculoskeletal: No joint effusion noted - Vital Signs Vital signs: Vital Signs - 12hr 01/17/20 01/17/20 06:28 12:12 Temperature 99.0 F 98.0 F Pulse Rate 95 H 84 Respiratory 20 20 Rate Blood Pressure 152/80 157/96 O2 Sat by Pulse 97 97 Oximetry - Lab 01/16/20 04:04 01/17/20 13:24 Most recent lab results Calcium 9.2 mg/dL (8.4-10.2) 01/17/20 13:24 Magnesium 2.30 mg/dL (1.7-2.3) 01/14/20 21:36 Urine Creatinine < 4.2 mg/dL (0.1-20.0) 01/15/20 04:25 Urine Total Protein < 4 mg/dL (5-11.8) L 01/15/20 04:25 Medications & Allergies - Medications Allergies/Adverse Reactions: Allergies No Known Allergies Allergy (Verified 10/20/19 00:49) Home Medications: Home Medications Medication Instructions Recorded Confirmed Last Taken Type Omeprazole [PriLOSEC] 20 mg PO QDAY 05/25/13 01/15/20 04/26/13 History Simvastatin (Nf) [Zocor TAB] 40 mg PO QHS 05/25/13 01/15/20 12/07/14 History Latanoprost 0.005% 1 drop OP QPM 11/26/14 01/15/20 Unknown History buPROPion [Wellbutrin] 100 mg PO BID #60 10/17/19 01/15/20 Unknown Rx QUEtiapine [SEROquel] 100 mg PO DAILY tablet 10/31/19 01/15/20 Unknown Rx QUEtiapine [SEROquel] 200 mg PO QHS tablet 10/31/19 01/15/20 Unknown Rx buPROPion [Wellbutrin] 100 mg PO BID tablet 10/31/19 01/15/20 Unknown Rx Insulin NPH/Regular [NovoLIN 70/30] 8 unit SUB-Q BIDDIAB 30 Days #600 11/10/19 01/15/20 Unknown Rx units QUEtiapine [SEROquel] 200 mg PO QHS #15 tablet 11/10/19 01/15/20 Unknown Rx Pantoprazole [Protonix TAB] 40 mg PO QDAY #30 tablet 01/12/20 01/15/20 Unknown Rx Tamsulosin [Flomax] 0.4 mg PO QDAY #30 capsule 01/12/20 01/15/20 Unknown Rx Timolol 0.5% [Timoptic] 1 drops OP BID #1 bottle 01/12/20 01/15/20 Unknown Rx amLODIPine 10 mg PO QDAY #30 tablet 01/12/20 01/15/20 Unknown Rx Active Medications: Generic Name Dose Route Start Last Admin Trade Name Freq PRN Reason Stop Dose Admin Acetaminophen 650 mg 01/15/20 00:26 01/15/20 23:03 Tylenol PO 650 mg Q4H PRN Administration Pain MILD(1-3)/Fever >100.5/URIAS Dextrose 0 ml 01/15/20 00:26 D50w (25gm) Syringe IV Q30MIN PRN Hypoglycemia Protocol Heparin Sodium (Porcine) 5,000 unit 01/15/20 14:00 01/17/20 14:37 Heparin SUB-Q 5,000 unit Q8HR PHILIPPE Administration Lactated Ringer's 1,000 mls @ 125 mls/hr 01/15/20 18:00 01/17/20 09:53 Lactated Ringers IV 125 mls/hr DIRECT PHILIPPE Administration Insulin Human Lispro 0 unit 01/15/20 07:30 01/17/20 12:59 Humalog SUB-Q Not Given ACHS PHILIPPE Protocol Magnesium Hydroxide 30 ml 01/15/20 00:26 Milk Of Magnesia PO Q4H PRN Constipation Morphine Sulfate 2 mg 01/15/20 00:26 01/17/20 07:47 Morphine IV 2 mg Q4H PRN Administration Pain, Moderate (4-6) Ondansetron HCl 4 mg 01/15/20 00:26 Zofran IV Q8H PRN Nausea And Vomiting Sodium Chloride 10 ml 01/15/20 10:00 01/17/20 09:54 Sodium Chloride Flush Syringe 10 Ml IV Not Given BID PHILIPPE Sodium Chloride 10 ml 01/15/20 00:26 Sodium Chloride Flush Syringe 10 Ml IV PRN PRN LINE FLUSH
--- NOTE | 2020-01-17 18:21 | XRay Report ---
BILATERAL FEMURS 8 VIEWS INDICATION / CLINICAL INFORMATION: bilateral hip pain. COMPARISON: None available. FINDINGS: Moderate degenerative changes, but no fracture, subluxation or other acute abnormality. Signer Name: Elvis Prieto MD Signed: 01/17/2020 6:17 PM Workstation Name: [id number]
[2020-01-18] MEDS: MORPHINE 2 MG/1 ML INJ IV PRN (05:49)
[2020-01-18] MEDS: HEPARIN 5,000 UNIT/1 ML VIAL SUB-Q SCH ×2 (05:50→15:34)
[2020-01-18] MEDS: INSULIN LISPRO 100 UNIT/ML VIAL 3 mL SUB-Q SCH ×3 (08:04→18:18)
[2020-01-18] MEDS: LACTATED RINGERS 1,000 ML IV SCH (11:48)
--- NOTE | 2020-01-18 14:15 | Discharge Summary ---
Providers - Providers Date of Admission: 01/14/20 23:58 Date of discharge: 01/18/20 Attending physician: PALMER ALLEN 01/14/20 23:15 Consult to Physician [CONS] Urgent Comment: Dr. Retana spoke with Dr. Simmons @ [id number] Consulting Provider: JAVED SIMMONS Physician Instructions: Reason For Exam: acute renal insufficiency 01/15/20 00:27 Consult to Dietitian/Nutrition [CONS] Routine Physician Instructions: Reason For Exam: Reason for Consult: Diet education 01/15/20 07:09 Consult to Physician [CONS] Routine Comment: Consulting Provider: BIBI MELÉNDEZ Physician Instructions: Reason For Exam: bilateral Lower extremity pain, Chr. Back pain Primary care physician: FORMING MACHINE TENDER Hospitalization Condition: Stable Pertinent studies: CT scan of head unremarkable. X-ray of 5 hip unremarkable except for degenerative joint disease. Hospital course: Patient 69-year-old presented to the ED with vague memory loss and vague lower extremity pain. Upon initial presentation patient denied any leg pain on the second day patient stated he had leg and hip pain. The description was difficult to greens picker secondary to poor history and inability to describe even the minimal consistency of the pain however most likely neuropathy versus arthritis. Patient also complained of memory loss but we did work-up the memory loss patient had a unremarkable CT scan thyroid was normal, no evidence of syphilis B12 normal. Patient stable to be discharged and follow-up primary care physician for further evaluation of memory loss. Patient did not have any evidence of memory loss at this stay. Nothing acute. Decided to discharge home with Neurontin because possibly this is neuropathy. Disposition: - TO HOME OR SELFCARE - Discharge Diagnoses (1) Bilateral leg pain Status: Acute Comment: Unable to appreciate etiology. It would go 1 time state air for 2 hours and then leave. Appeared to be neuropathy versus arthritis. We will treat patient for both neuropathy with gabapentin and also patient told to get Tylenol arthritis as needed. (2) Diabetes Status: Acute Comment: Patient Accu-Cheks stable with sliding scale insulin. Did not have any need to use sliding scale insulin. Patient potentially could have some neuropathy from diabetes. Will be given gabapentin 300 mg nightly. (3) Memory loss Status: Acute Comment: No evidence of memory loss initial work-up negative. Patient told to follow-up with primary care physician outside neurologist. (4) ERIC (acute kidney injury) Status: Acute Comment: Secondary to vasomotor nephropathy and volume depletion (5) UTI (urinary tract infection) Status: Acute Comment: Discharge on oral antibiotics Core Measure Documentation - Palliative Care Palliative Care/ Comfort Measures: Not Applicable - Core Measures Any of the following diagnoses?: none Exam - Constitutional Vitals: Temp Pulse Resp BP Pulse Ox 98.0 F 68 20 153/76 97 01/18/20 11:33 01/18/20 11:33 01/18/20 11:33 01/18/20 11:33 01/18/20 11:33 General appearance: Present: no acute distress, well-nourished - EENT Eyes: Present: PERRL ENT: hearing intact, clear oral mucosa - Neck Neck: Present: supple, normal ROM - Respiratory Respiratory effort: normal Respiratory: bilateral: CTA - Cardiovascular Heart Sounds: Present: S1 & S2. Absent: rub, click - Extremities Extremities: pulses symmetrical, No edema Peripheral Pulses: within normal limits - Abdominal General gastrointestinal: Present: soft, non-tender, non-distended, normal bowel sounds Male genitourinary: Present: normal - Integumentary Integumentary: Present: clear, warm, dry - Musculoskeletal Musculoskeletal: gait normal, strength equal bilaterally - Psychiatric Psychiatric: appropriate mood/affect, intact judgment & insight - Neurologic Neurologic: CNII-XII intact, moves all extremities Plan Activity: no restrictions Weight Bearing Status: Weight Bear as Tolerated Diet: diabetic Special Instructions: physical therapy, home health RN Follow up with: PRIMARY CARE,MD [Primary Care Provider] - 3-5 Days Prescriptions: Gabapentin 300 mg PO QPM #30 capsule Pantoprazole [Protonix TAB] 40 mg PO QDAY #30 tablet
[2020-01-18] MEDS ORDERED: amLODIPine 10 MG TAB PO SCH (15:00)
[2020-01-18] MEDS ORDERED: PANTOPRAZOLE 40 MG TAB PO SCH (15:00)
[2020-01-18] MEDS ORDERED: QUEtiapine 100 MG TAB PO SCH (15:00)
[2020-01-18] MEDS ORDERED: INSULIN NPH/REGULAR 70/30 INJ SUB-Q SCH (17:00)
[2020-01-18] MEDS ORDERED: GABAPENTIN 300 MG CAP PO SCH (18:00)
[2020-01-18 18:49] VITALS: BP 157/86
[2020-01-18] MEDS ORDERED: buPROPion 100 MG TAB PO SCH ×2 (22:00)
[2020-01-18] MEDS ORDERED: TIMOLOL 0.5% OP SCH (22:00)
[2020-01-18] MEDS ORDERED: TIMOLOL 0.5% OPHTH SOLN 5 ML OU SCH (22:00)
[2020-01-18] MEDS ORDERED: QUEtiapine 200 MG TAB PO SCH ×2 (22:00)
[2020-01-20] MEDS ORDERED: TAMSULOSIN 0.4 MG CAP PO SCH (10:00)
== END 2020-01-18 19:10 | disposition home or self-care (01) ==
LOC: ED 17:04 → 3A 23:58
PROVIDERS: ADMIT Internal Medicine Geriatric Medicine; ATTEND Internal Medicine
DX: N17.9 Acute kidney failure, unspecified (principal); M79.604 Pain in right leg; M79.605 Pain in left leg; N39.0 Urinary tract infection, site not specified; E11.9 Type 2 diabetes mellitus without complications; I10 Essential (primary) hypertension; K21.9 Gastro-esophageal reflux disease without esophagitis; M19.90 Unspecified osteoarthritis, unspecified site; F02.80 Dementia in other diseases classified elsewhere, unspecified severity, without behavioral disturbance, psychotic disturbance, mood disturbance, and anxiety; E87.2 Acidosis; R80.9 Proteinuria, unspecified; N28.1 Cyst of kidney, acquired; R41.3 Other amnesia; R41.82 Altered mental status, unspecified; E86.0 Dehydration; Z79.4 Long term (current) use of insulin
CPT/HCPCS: 36415; 70450; 73552; 80048; 80053; 81001; 82550; 82570; 82607; 82962; 83735; 84156; 84443; 85025; 85610; 86780; 87086; 87641; 96361; 96365; 96366; 96372; 96375; 96376; 99284; G0378; J0696; J1644; J2270; J2405; J7030; J7120

== ENCOUNTER 2021-09-23 20:26 | Emergency (ER) | payer MEDICARE ==
[2021-09-23 21:05] VITALS: BP 173/97
--- NOTE | 2021-09-23 21:54 | XRay Report ---
RIGHT KNEE 4 VIEWS INDICATION / CLINICAL INFORMATION: right knee COMPARISON: None available. FINDINGS: BONES / JOINT(S): No acute fracture or subluxation. There is mild to moderate tricompartmental osteoa rthrosis. Enthesopathic changes are seen at the proximal and distal attachments of the patellar tendo n and at the distal attachment of the quadriceps tendon along the superior pole of the patella. SOFT TISSUES: No significant abnormality. No joint effusion. ADDITIONAL FINDINGS: None. IMPRESSION: No acute findings. Signer Name: Deacon Sosa MD Signed: 09/23/2021 9:50 PM Workstation Name: [id number]
[2021-09-24] MEDS ORDERED: SODIUM CHLORIDE 0.9% 1000 ML 1,000 ML IV ONE (00:51)
[2021-09-24] MEDS ORDERED: INSULIN REGULAR, HUMAN 100 UNITS/1 ML IV ONE (00:58)
[2021-09-24 01:13] LABS: Basophils # (Auto) 0.1 K/mm3 (0.0-0.1); Eosinophils % (Auto) 0.1 % (0.0-4.3); Lymphocytes # (Auto) 0.6 K/mm3 (1.2-5.4); Lymphocytes % (Auto) 7.1 % (13.4-35.0); Mean Corpuscular HGB Conc 32 % (32-34); Mean Corpuscular Volume 88 fl (84-94); Monocytes # (Auto) 0.4 K/mm3 (0.0-0.8); Monocytes % (Auto) 4.7 % (0.0-7.3); Platelet Count 178 K/mm3 (140-440); Red Blood Count 5.01 M/mm3 (3.65-5.03); Red Cell Distribution Width 12.9 % (13.2-15.2)
[2021-09-24 01:33] LABS: Alanine Aminotransferase 37 units/L (7-56); Albumin 4.6 g/dL (3.9-5); BUN/Creatinine Ratio 15; Blood Urea Nitrogen 20 mg/dL (9-20); Calcium 10.5 mg/dL (8.4-10.2); Hemolysis Index 4
--- NOTE | 2021-09-24 03:56 | Emergency Department Report ---
ED General Adult HPI - General Chief complaint: Extremity Injury, Lower Stated complaint: RIGHT KNEE PAIN Time Seen by Provider: 09/24/21 01:53 Source: patient, EMS Mode of arrival: Stretcher Limitations: Physical Limitation - History of Present Illness Initial comments: Fell onto right knee yesterday. Today worsening knee pain and accucheck was high. Was given 250cc NS by EMS -: Sudden, hour(s) Location: lower extremity Severity scale (0 -10): 3 Quality: aching Consistency: constant Improves with: none Worsens with: none - Related Data Home Medications Medication Instructions Recorded Confirmed Last Taken Omeprazole [PriLOSEC] 20 mg PO QDAY 05/25/13 01/15/20 04/26/13 Simvastatin (Nf) [Zocor TAB] 40 mg PO QHS 05/25/13 01/15/20 12/07/14 Latanoprost 0.005% 1 drop OP QPM 11/26/14 01/15/20 Unknown Previous Rx's Medication Instructions Recorded Last Taken Type buPROPion [Wellbutrin] 100 mg PO BID #60 10/17/19 Unknown Rx QUEtiapine [SEROquel] 100 mg PO DAILY tablet 10/31/19 Unknown Rx QUEtiapine [SEROquel] 200 mg PO QHS tablet 10/31/19 Unknown Rx buPROPion [Wellbutrin] 100 mg PO BID tablet 10/31/19 Unknown Rx Insulin NPH/Regular [NovoLIN 70/30] 8 unit SUB-Q BIDDIAB 30 Days #600 11/10/19 Unknown Rx units QUEtiapine [SEROquel] 200 mg PO QHS #15 tablet 11/10/19 Unknown Rx Tamsulosin [Flomax] 0.4 mg PO QDAY #30 capsule 01/12/20 Unknown Rx Timolol 0.5% [Timoptic] 1 drops OP BID #1 bottle 01/12/20 Unknown Rx amLODIPine 10 mg PO QDAY #30 tablet 01/12/20 Unknown Rx Acetaminophen [Acetaminophen TAB] 650 mg PO Q4H PRN tablet 01/18/20 Unknown Rx Gabapentin 300 mg PO QPM #30 capsule 01/18/20 Unknown Rx Pantoprazole [Protonix TAB] 40 mg PO QDAY #30 tablet 01/18/20 Unknown Rx Allergies Allergy/AdvReac Type Severity Reaction Status Date / Time No Known Allergies Allergy Verified 10/20/19 00:49 ED Review of Systems ROS: Stated complaint: RIGHT KNEE PAIN Other details as noted in HPI Constitutional: denies: chills, fever Eyes: denies: eye pain, eye discharge, vision change ENT: denies: ear pain, throat pain Respiratory: denies: cough, shortness of breath, wheezing Cardiovascular: denies: chest pain, palpitations Endocrine: no symptoms reported Gastrointestinal: denies: abdominal pain, nausea, diarrhea Genitourinary: denies: urgency, dysuria Musculoskeletal: denies: back pain, joint swelling, arthralgia Skin: denies: rash, lesions Neurological: denies: headache, weakness, paresthesias Psychiatric: denies: anxiety, depression Hematological/Lymphatic: denies: easy bleeding, easy bruising ED Past Medical Hx - Past Medical History Previous Medical History?: Yes Hx Hypertension: Yes (5 YEARS) Hx Diabetes: Yes (NIDDM) Hx Pulmonary Embolism: No Hx GERD: Yes Hx Sickle Cell Disease: No Hx Arthritis: Yes (LEGS) Hx Psychiatric Treatment: Yes Hx Asthma: No Hx COPD: No Hx Dementia: Yes (alzheimer's) - Surgical History Past Surgical History?: Yes Additional Surgical History: UNABLE TO OBTAIN - Social History Smoking Status: Never Smoker Substance Use Type: None - Medications Home Medications: Home Medications Medication Instructions Recorded Confirmed Last Taken Type Omeprazole [PriLOSEC] 20 mg PO QDAY 05/25/13 01/15/20 04/26/13 History Simvastatin (Nf) [Zocor TAB] 40 mg PO QHS 05/25/13 01/15/20 12/07/14 History Latanoprost 0.005% 1 drop OP QPM 11/26/14 01/15/20 Unknown History buPROPion [Wellbutrin] 100 mg PO BID #60 10/17/19 01/15/20 Unknown Rx QUEtiapine [SEROquel] 100 mg PO DAILY tablet 10/31/19 01/15/20 Unknown Rx QUEtiapine [SEROquel] 200 mg PO QHS tablet 10/31/19 01/15/20 Unknown Rx buPROPion [Wellbutrin] 100 mg PO BID tablet 10/31/19 01/15/20 Unknown Rx Insulin NPH/Regular [NovoLIN 70/30] 8 unit SUB-Q BIDDIAB 30 Days #600 11/10/19 01/15/20 Unknown Rx units QUEtiapine [SEROquel] 200 mg PO QHS #15 tablet 11/10/19 01/15/20 Unknown Rx Tamsulosin [Flomax] 0.4 mg PO QDAY #30 capsule 01/12/20 01/15/20 Unknown Rx Timolol 0.5% [Timoptic] 1 drops OP BID #1 bottle 01/12/20 01/15/20 Unknown Rx amLODIPine 10 mg PO QDAY #30 tablet 01/12/20 01/15/20 Unknown Rx Acetaminophen [Acetaminophen TAB] 650 mg PO Q4H PRN tablet 01/18/20 Unknown Rx Gabapentin 300 mg PO QPM #30 capsule 01/18/20 Unknown Rx Pantoprazole [Protonix TAB] 40 mg PO QDAY #30 tablet 01/18/20 Unknown Rx ED Physical Exam - General Limitations: Physical Limitation General appearance: alert, in no apparent distress - Head Head exam: Present: atraumatic, normocephalic - Eye Eye exam: Present: normal appearance - ENT ENT exam: Present: mucous membranes moist - Neck Neck exam: Present: normal inspection - Respiratory Respiratory exam: Present: normal lung sounds bilaterally. Absent: respiratory distress - Cardiovascular Cardiovascular Exam: Present: regular rate, normal rhythm. Absent: systolic murmur, diastolic murmur, rubs, gallop - GI/Abdominal GI/Abdominal exam: Present: soft, normal bowel sounds - Rectal Rectal exam: Present: deferred - Extremities Exam Extremities exam: Present: normal inspection - Back Exam Back exam: Present: normal inspection - Neurological Exam Neurological exam: Present: alert, oriented X3 - Psychiatric Psychiatric exam: Present: normal affect, normal mood - Skin Skin exam: Present: warm, dry, intact, normal color. Absent: rash ED Course Vital Signs 09/23/21 09/23/21 20:32 21:04 Temperature 98 F Pulse Rate 108 H 71 Respiratory 18 14 Rate Blood Pressure 160/90 Blood Pressure 173/97 [Left] O2 Sat by Pulse 100 98 Oximetry ED Medical Decision Making - Lab Data Result diagrams: 09/24/21 00:55 09/24/21 00:55 - Radiology Data Radiology results: report reviewed, image reviewed - Medical Decision Making work up showd normal x ray , high blood sugar , no ketosis insulin fludis given down to 200s Critical care attestation.: If time is entered above; I have spent that time in minutes in the direct care of this critically ill patient, excluding procedure time. ED Disposition Clinical Impression: Hyperglycemia, Right knee pain Disposition: 01 HOME / SELF CARE / HOMELESS Is pt being admited?: No Does the pt Need Aspirin: No Condition: Stable Instructions: Chronic Knee Pain, Adult, [id number], Hyperglycemia, [id number] Referrals: PRIMARY CARE, [Primary Care Provider] - 3-5 Days
== END 2021-09-24 05:01 | disposition home or self-care (01) ==
LOC: ED 20:26
DX: M25.561 Pain in right knee (principal); E11.65 Type 2 diabetes mellitus with hyperglycemia; I10 Essential (primary) hypertension; K21.9 Gastro-esophageal reflux disease without esophagitis; M19.90 Unspecified osteoarthritis, unspecified site; G30.8 Other Alzheimer's disease; F02.80 Dementia in other diseases classified elsewhere, unspecified severity, without behavioral disturbance, psychotic disturbance, mood disturbance, and anxiety; Z98.890 Other specified postprocedural states
CPT/HCPCS: 36415; 73562; 80053; 82010; 82805; 85025; 96361; 96374; 99284; J7030; Q9967; J1815